=== PATIENT | male | born 1955 | race Caucasian/White ===

== ENCOUNTER 2020-08-23 07:59 | Inpatient (IN) | payer OTHER ==
[~2020-08-23] VITALS: Ht 167.6 cm; Wt 91.2 kg
[~2020-08-23 07:59] MED LIST: ATENOLOL 25 MG25 M1 PO; COL-RITE100 MG PO; DILTIAZEM 24HR240 M1 PO; NOHOMEMEDICATIONS; NORCO 5-325 TA1 EACH PO; PAIN RELIEVER325 MG PO; PRADAXA150 MG PO
[2020-08-23 11:00] LABS: HEMATOCRIT 47.6 % (42.0-52.0); HEMOGLOBIN 16.4 gm/dL (14.0-18.0); MCH 32.4 pg (26.0-34.0); MCHC 34.5 g/dL (28.0-37.0); PLATELET COUNT 170 thou/uL (150-400); RBC 5.06 mil/uL (4.50-6.00); RDW 13.9 % (10.5-14.5); WBC 7.3 thou/uL (4.0-11.0)
[2020-08-23 11:15] LABS: ALBUMIN 3.6 g/dL (3.4-5.0); ANION GAP 12 mmol/L (7-16); BUN 23 mg/dL (7-18); CALCIUM 8.4 mg/dL (8.5-10.1); CHLORIDE 106 mmol/L (98-107); CHOLESTEROL 129 mg/dL (<200); CO2 22 mmol/L (21-32); CREATININE 1.1 mg/dL (0.7-1.3); GLUCOSE 119 mg/dL (74-106); HDL CHOLESTEROL 34 mg/dL (>40); LDL CHOLESTEROL 74 mg/dL (<100); MAGNESIUM 2.4 mg/dL (1.8-2.4); POLYS 56.9 % (36.0-66.0); POTASSIUM 4.8 mmol/L (3.5-5.1); SGOT 91 U/L (15-37); SGPT 105 U/L (30-65); SODIUM 140 mmol/L (136-145); TC:HDL 3.8 Ratio (Not establshd); TOTAL BILIRUBIN 1.6 mg/dL (0.2-1.0); TOTAL PROTEIN 7.4 g/dL (6.4-8.2); TRIGLYCERIDE 107 mg/dL (<150); VLDL 21 mg/dL (<40)
[2020-08-23 11:16] LABS: BASOPHILS 1.9 % (0.0-2.0); EOSINOPHILS 1.8 % (0.0-3.0); MONOCYTES 8.4 % (1.0-8.0)
[2020-08-23 11:47] VITALS: BP 117/91
--- NOTE | 2020-08-23 12:10 | 2DMMODE ---
[facility] [place] [address] [address] 2 D/M-MODE ECHOCARDIOGRAM Name: KIN HALLMAN Room #: 218-P ADM IN .R.#: [id number] Admission: 08/23/20 Attend Phys: Natividad Funez MD Discharge: Date of : 53 Report #: [id number] THIS REPORT FOR: cc: FAM - Family physician unknown FAM - Family physician unknown Humberto Nguyen MD [facility] ~ APPROVED REPORT Study performed: 08/23/2020 11:02:40 EXAM: Comprehensive 2D, Doppler, and color-flow Echocardiogram Patient Location: In-Patient Room #: 218 Status: routine BSA: 2.06 HR: 110 bpm Rhythm: Atrial Fibrillation Indications Atrial Fibrillation 2D Dimensions RVDd: 50.96 mm IVSd: 11.05 (7-11mm) LVOT Diam: 21.81 (18-24mm) LVDd: 55.24 mm PWd: 11.05 (7-11mm) Ascending Ao: 40.24 (22-36mm) LVDs: 51.60 (25-40mm) Left Atrium: 53.67 (27-40mm) Aortic Root: 34.62 mm Volumes Left Atrial Volume (Systole) Single Plane 4CH: 117.18 mL Single Plane 2CH: 63.21 mL Aortic Valve AoV Peak Sudheer.: 1.25 m/s AO Peak Gr.: 6.27 mmHg LVOT Max P.42 mmHg AO Mean Gr.: 2.99 mmHg AO V2 Mean: 0.80 m/s LVOT Max V: 1.26 m/s AO V2 VTI: 20.94 cm HONEY Vmax: 3.77 cm2 Mitral Valve [facility] [email or web address] [address] 2 D/M-MODE ECHOCARDIOGRAM Name: KIN HALLMAN Room #: 218-P [facility] IN [facility]#: [id number] Admission: 08/23/20 Attend Phys: Natividad Funez MD Discharge: Date of : 53 Report #: [id number] MV E Max Sudheer.: 1.02 m/s Tricuspid Valve TR Peak Sudheer.: 2.76 m/s TR Peak Gr.: 30.44 mmHg Left Ventricle The left ventricle is normal size Borderline concentric left ventricular hypertrophy. Left ventricular systolic function is mildly decreased. LVEF is 40-45%. Right Ventricle The right ventricle is normal size. The right ventricular systolic function is normal. Atria Left atrium is moderately dilated. Right atrium is moderately dilated. Aortic Valve The aortic valve is normal in structure. No aortic regurgitation is present. There is no aortic valvular stenosis. Mitral Valve The mitral valve is normal in structure. Mild mitral regurgitation. No evidence of mitral valve stenosis. Tricuspid Valve The tricuspid valve is normal in structure. Trace to mild tricuspid regurgitation. Estimated PAP 45 mmHg. Pulmonic Valve The pulmonary valve is normal in structure. Trace pulmonic regurgitation. Great Vessels The aortic root is normal in size. The ascending aorta is mildly dilated. IVC is dilated and collapses <50% with inspiration. Pericardium There is no pericardial effusion. <Conclusion> Study performed in atrial fibrillation Normal left ventricular size with borderline concentric [facility] [address] [place] [address] 2 D/M-MODE ECHOCARDIOGRAM Name: KIN HALLMAN Room #: 218-P [facility] IN ..#: [id number] Admission: 08/23/20 Attend Phys: Natividad Funez MD Discharge: Date of : 53 Report #: [id number] Mild global hypokinesis ejection fraction around 40% Normal right ventricle size/function Moderate biatrial enlargement Color-flow Doppler study was performed of the aortic/mitral/tricuspid/pulmonary valve Normal aortic valve structure and function Mild central mitral valve insufficiency Trace tricuspid valve insufficiency Pulmonary systolic pressure estimated 45 mmHg No pericardial effusion Normal aortic root size. <ELECTRONICALLY SIGNED> By: Humberto Nguyen MD, FACC 08/23/20 121 09 09 Humberto Nguyen MD, FACC /INF
[2020-08-23 15:22] VITALS: BP 102/70
[2020-08-23 20:15] VITALS: BP 110/89
[2020-08-23 23:38] VITALS: BP 125/92
[2020-08-24 04:10] VITALS: BP 107/93
[2020-08-24 05:21] LABS: HEMATOCRIT 47.4 % (42.0-52.0); HEMOGLOBIN 15.5 gm/dL (14.0-18.0); MCH 31.3 pg (26.0-34.0); MCHC 32.6 g/dL (28.0-37.0); MCV 96.1 fL (80.0-100.0); RBC 4.93 mil/uL (4.50-6.00); RDW 14.1 % (10.5-14.5); WBC 7.8 thou/uL (4.0-11.0)
[2020-08-24 05:24] LABS: CALCIUM 8.3 mg/dL (8.5-10.1); CREATININE 1.1 mg/dL (0.7-1.3); POTASSIUM 4.2 mmol/L (3.5-5.1)
[2020-08-24 07:50] VITALS: BP 108/86
[2020-08-24 12:15] VITALS: BP 103/80
[2020-08-24] MEDS ORDERED: COSOPT OCUMETER10 ML EA. EYE (14:45)
[2020-08-24 15:55] VITALS: BP 122/80
[2020-08-24 19:56] VITALS: BP 121/93
[2020-08-25 01:02] VITALS: BP 105/72
[2020-08-25 04:16] LABS: HEMATOCRIT 46.3 % (42.0-52.0); HEMOGLOBIN 15.3 gm/dL (14.0-18.0); MCH 31.3 pg (26.0-34.0); MCHC 33.1 g/dL (28.0-37.0); MCV 94.3 fL (80.0-100.0); RBC 4.91 mil/uL (4.50-6.00); RDW 13.6 % (10.5-14.5); WBC 8.3 thou/uL (4.0-11.0)
[2020-08-25 04:26] LABS: CALCIUM 8.2 mg/dL (8.5-10.1); CREATININE 1.2 mg/dL (0.7-1.3); POTASSIUM 4.5 mmol/L (3.5-5.1)
[2020-08-25 04:42] VITALS: BP 102/65
[2020-08-25 08:25] VITALS: BP 93/77
--- NOTE | 2020-08-25 08:33 | EKG ---
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 : 1955 Requested By: Natividad Funez Order Number: [id number] MD: Tan Martins Measurements Intervals [place] Rate: 109 P: OR: QRS: 84 QRSD: 92 T: 70 QT: 388 QTc: 523 Interpretive Statements Atrial fibrillation with occasional premature ventricular complexes Consider right ventricular hypertrophy Prolonged QT interval Compared to ECG 10/24/2013 08:44:46 No significant change was found Electronically Signed On 08-25-2020 8:33:41 CDT by Tan Martins [email or web address] <ELECTRONICALLY SIGNED> By: Tan Martins MD, [facility] 08/25/20832 0 075 Tan Martins MD, [facility] /EPI
--- NOTE | 2020-08-25 10:31 | EKG ---
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1955 Requested By: Natividad Funez Order Number: [id number] MD: Humberto Nguyen Measurements Intervals [place] Rate: 98 P: OK: QRS: 90 QRSD: 93 T: QT: 398 QTc: 509 Interpretive Statements Atrial fibrillation Borderline right axis deviation Abnormal R-wave progression, early transition Borderline repolarization abnormality Prolonged QT interval Compared to ECG 10/24/2013 08:44:46 Possible ischemia no longer present Electronically Signed On 08-25-2020 10:31:03 CDT by Humberto Nguyen [email or web address] <ELECTRONICALLY SIGNED> By: Humberto Nguyen MD, [facility] 08/25/20 1031 1735 173 Humberto Nguyen MD, [facility] /EPI
[2020-08-25 15:10] VITALS: BP 131/79
[2020-08-25 19:15] VITALS: BP 119/70
[2020-08-25 23:45] VITALS: BP 132/75
[2020-08-26 03:59] VITALS: BP 128/72
[2020-08-26 04:02] LABS: HEMATOCRIT 48.4 % (42.0-52.0); HEMOGLOBIN 16.4 gm/dL (14.0-18.0); MCH 31.8 pg (26.0-34.0); MCHC 33.8 g/dL (28.0-37.0); RBC 5.15 mil/uL (4.50-6.00); RDW 13.5 % (10.5-14.5); WBC 8.5 thou/uL (4.0-11.0)
[2020-08-26 04:37] LABS: CALCIUM 8.5 mg/dL (8.5-10.1); CREATININE 1.1 mg/dL (0.7-1.3); POTASSIUM 3.9 mmol/L (3.5-5.1)
[2020-08-26 09:31] VITALS: BP 111/77; BP 212/77
[2020-08-26 12:00] VITALS: BP 111/77
[2020-08-26] MEDS ORDERED: DIGOXIN125 MCG PO (12:36)
[2020-08-26] MEDS ORDERED: PACERONE 200 M200 M1 PO (12:36)
[2020-08-26] MEDS ORDERED: METOPROLOL SUCC50 MG PO (12:37)
[2020-08-26] MEDS ORDERED: IMDUR 30 MG TAB30 M1 PO (12:37)
[2020-08-26] MEDS ORDERED: LASIX 40 MG TAB40 M1 PO (12:37)
[2020-08-26 12:52] VITALS: BP 212/77
== END 2020-08-26 13:25 | disposition home or self-care (01) | DRG 291 ==
LOC: 2N 07:59
PROVIDERS: Hospitalist; Nurse Practitioner; ADMIT Internal Medicine; ATTEND Internal Medicine
DX: I50.21 Acute systolic (congestive) heart failure (principal); J96.00 Acute respiratory failure, unspecified whether with hypoxia or hypercapnia; I47.1 Supraventricular tachycardia; H33.21 Serous retinal detachment, right eye; I48.20 Chronic atrial fibrillation, unspecified; F12.90 Cannabis use, unspecified, uncomplicated; E78.5 Hyperlipidemia, unspecified; I10 Essential (primary) hypertension
CPT/HCPCS: 10081; 10797

== ENCOUNTER → 2020-09-09 | Outpatient (CLI) | payer OTHER ==
[~2020-09-09] MED LIST changes: +COSOPT OCUMETER10 ML EA. EYE; +DIGOXIN125 MCG PO; +ELIQUIS5 MG PO; +FUROSEMIDE 40 M40 M1 PO; +IMDUR 30 MG TAB30 M1 PO; +LASIX 40 MG TAB40 M1 PO; +METOPROLOL SUCC50 MG PO; +PACERONE 200 M200 M1 PO; +PACERONE200 MG PO; +SUPER THERAVIT1 EACH PO; +TOPROL XL50 MG PO; +TRAZODONE HCL50 MG PO
== END ==
LOC: SJCVC 10:16
PROVIDERS: ATTEND Internal Medicine
DX: R94.31 Abnormal electrocardiogram [ECG] [EKG] (principal); I48.91 Unspecified atrial fibrillation; E78.5 Hyperlipidemia, unspecified; Z79.899 Other long term (current) drug therapy; Z87.891 Personal history of nicotine dependence

== ENCOUNTER → 2020-09-17 | Outpatient (CLI) | payer OTHER ==
[~2020-09-17] VITALS: Ht 180.3 cm; Wt 93.2 kg
[2020-09-17 07:21] VITALS: BP 130/87
--- NOTE | 2020-09-17 08:55 | TEE ---
[facility] [address] [place] [address] TRANSESOPHAGEAL ECHOCARDIOGRAM Name: KIN HALLMAN Room #: REG [facility]#: [id number] Admission: 09/17/20 Attend Phys: Humberto Nguyen MD, Discharge: Date of : 53 Report #: [id number] THIS REPORT FOR: cc: Moe Wild James L. DO Santiago, Patrick MD [facility] ~ APPROVED REPORT Study performed: 09/17/2020 07:50:01 EXAM: Transesophageal Echocardiogram Patient Location: CVL/OUTPATIENT BSA: 2.06 HR: 81 bpm BP: 144/91 mmHg Rhythm: Atrial Fibrillation Other Information Study Quality: Good Indications Atrial Fibrillation Cardioversion Procedure After obtaining informed consent, patient underwent transesophageal echo in the [employer]. Type of Sedation : Conscious Sedation Sedation was administered by Shyanne Gilbert RN. Sedation start time: 075 Case end Time: 075 Sedation was achieved intravenously with: Versed (7) Fentanyl (75) Transesophageal probe was inserted and advanced into esophagus without difficulty by Humberto Nguyen MD. Echo enhancement indication: R/O Septal defect. Echo enhancement agent administered: Agitated Saline The GAL was performed without complications. Synchronized Cardioversion attempted: Successful Synchronized Cardioversion acheived with 75J; 120J Joules after 2 attempt(s). Rhythm following Synchronized Cardioversion: Normal Sinus Rhythm Throughout the procedure, the blood pressure, pulse oximetry, cardiac rhythm, and rate were monitored. The patient tolerated the procedure without adverse effects. Recovery [facility] [address] [address] TRANSESOPHAGEAL ECHOCARDIOGRAM Name: KIN HALLMAN Room #: REG [facility]#: [id number] Admission: 09/17/20 Attend Phys: Humberto Nguyen, Discharge: Date of : 53 Report #: [id number] from conscious sedation was uneventful and vital signs were stable. Left Ventricle The left ventricle is normal size. There is normal left ventricular wall thickness. Left ventricular systolic function is mildly decreased. LVEF is 45%. Right Ventricle The right ventricle is normal size. The right ventricular systolic function is normal. Atria Biatrial enlargement. No thrombus is visualized in the left atrium or appendage. No shunting noted with contrast bubble injection. Aortic Valve The aortic valve is normal in structure; mildly calcified. Mild aortic regurgitation. There is no aortic valvular stenosis. Mitral Valve The mitral valve is normal in structure. Moderate mitral regurgitation. No evidence of mitral valve stenosis. Tricuspid Valve The tricuspid valve is normal in structure. Mild tricuspid regurgitation. Pulmonic Valve The pulmonary valve is normal in structure. Great Vessels The ascending aorta is mildly dilated. Pericardium There is no pericardial effusion. <Conclusion> Patient in atrial fibrillation at baseline Consent was obtained Timeout was performed After appropriate sedation the esophageal probe was advanced without difficulty Left atrial appendage, moderate size no obvious clot detected. Moderate biatrial enlargement. [facility] [address] [place] [address] TRANSESOPHAGEAL ECHOCARDIOGRAM Name: KIN HALLMAN Vianca Room #: REG [facility]#: [id number] Admission: 09/17/20 Attend Phys: Humberto Nguyen, Discharge: Date of : 53 Report #: [id number] Tricuspid aortic valve, mild aortic valve insufficiency Moderate mitral valve insufficiency/central No evidence of ASD/VSD by color flow/bubble study Ejection fraction estimated 45%, mild global hypokineses Aorta no calcification detected Patient successfully cardioverted to NSR after 75-125 J/ biphasic mode Patient tolerated the procedure well Twelve-lead ECG pending <ELECTRONICALLY SIGNED> By: Humberto Nguyen MD, FACC 09/17/20 0854 3 3 Humberto Nguyen MD, FACC /INF
--- NOTE | 2020-09-17 10:30 | EKG ---
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[facility] : 1955 Requested By: Humberto Nguyen Order Number: [id number] MD: Humberto Nguyen Measurements Intervals [place] Rate: 69 P: 63 VT: 178 QRS: 68 QRSD: 108 T: 70 QT: 453 QTc: 486 Interpretive Statements Sinus rhythm Atrial premature complexes Consider left atrial enlargement Borderline T wave abnormalities Borderline prolonged QT interval Compared to ECG 08/25/2020 07:51:48 Atrial premature complex(es) now present T-wave abnormality now present Atrial fibrillation no longer present Ventricular premature complex(es) no longer present Electronically Signed On 09-17-2020 10:30:17 CDT by Humberto Nguyen [email or web address] <ELECTRONICALLY SIGNED> By: Humberto Nguyen MD, [facility] 09/17/20 1030 Humberto Nguyen MD, [facility] /EPI
== END | disposition home or self-care (01) ==
LOC: CATH 06:28
PROVIDERS: ATTEND Internal Medicine
DX: I48.91 Unspecified atrial fibrillation (principal); I08.3 Combined rheumatic disorders of mitral, aortic and tricuspid valves; I10 Essential (primary) hypertension; E78.5 Hyperlipidemia, unspecified; K21.9 Gastro-esophageal reflux disease without esophagitis; H40.9 Unspecified glaucoma; Z98.890 Other specified postprocedural states; Z79.899 Other long term (current) drug therapy; Z87.891 Personal history of nicotine dependence; Z79.01 Long term (current) use of anticoagulants

== ENCOUNTER → 2020-12-08 | Outpatient (CLI) | payer OTHER | LOC: SJCVCIMAG 09:36 | PROVIDERS: ATTEND Internal Medicine | DX: R94.31 Abnormal electrocardiogram [ECG] [EKG] (principal); I08.8 Other rheumatic multiple valve diseases; I48.91 Unspecified atrial fibrillation; E78.5 Hyperlipidemia, unspecified; F19.90 Other psychoactive substance use, unspecified, uncomplicated; I42.9 Cardiomyopathy, unspecified; E78.00 Pure hypercholesterolemia, unspecified; Z79.899 Other long term (current) drug therapy; Z87.891 Personal history of nicotine dependence ==

== ENCOUNTER → 2021-01-05 | Outpatient (CLI) | payer OTHER | LOC: SJCVC 13:04 | PROVIDERS: ATTEND Internal Medicine | DX: R94.31 Abnormal electrocardiogram [ECG] [EKG] (principal); R00.1 Bradycardia, unspecified; I48.0 Paroxysmal atrial fibrillation; E78.5 Hyperlipidemia, unspecified; H40.9 Unspecified glaucoma; F12.90 Cannabis use, unspecified, uncomplicated; Z87.891 Personal history of nicotine dependence; Z79.891 Long term (current) use of opiate analgesic; Z79.899 Other long term (current) drug therapy ==